=== PATIENT | female | born 1950 | race African-American/Black ===

== ENCOUNTER 2019-03-03 09:50 | Observation (INO) | payer BC ==
--- NOTE | 2019-03-03 10:10 | PDOC ---
History of Present Illness - General Stated Complaint: SYNCOPY Time Seen by Provider: 03/03/19 10:10 History Source: Patient, EMS Exam Limitations: No Limitations - History of Present Illness Initial Comments: 03/03/19 10:18 HPI 68 YOF with h/o HTN, DM2, hypothyroidism, memory loss, seizure?, b12 deficiency presenting with syncope. she was at PT today, s/p unwitnessed fall and found by staff members face down on the floor. pt is amnesic to the event, denies any current symptoms and is confused. Denies fever, chills, chest pain, SOB, palpitation, dizziness, weakness, N, V, D , abdominal pain, bladder and bowel problems, focal weakness/paresthesias, leg swelling/pain, rash. Allergies: None Past Medical History/PSH: HTN, DM2, hypothyroidism Social history: No tobacco, ETOH or drug use. Meds: as documented in EMR PMD: Dr Moises Teixeira Review of systems Constitutional: no fevers or chills. No general weakness HEENT: no headache or dizziness. No congestion. No visual/hearing disturbances. CVS: no chest pain, +SYNCOPE Resp: no sob. No cough. Gastrointestinal: no abdominal pain, nausea, vomiting, diarrhea. Genitourinary: no urinary sx, hematuria. MUSCULOSKELETAL: No joint pain and swelling. No neck or back pain. SKIN: no redness or skin changes, no discharge, no rash. +wound, swelling. Hematologic: no easy bruising/bleeding. Endocrine: +polyuria, +polydipsia. NEUROLOGIC: No headache, dizziness, +Syncope, +amnesia. No focal weakness, numbness or tingling. Psych: no anxiety or depression Allergic/Immunologic: no allergies All other systems reviewed and negative, or as documented in HPI. Physical exam General: Well appearing, awake and alert, NAD. HEENT: +left lateral brow swelling, mildly tender to palp. no crepitus. PERRL, EOMI, clear conjunctiva, anicteric, moist mucus membranes, clear oropharynx, no oral lesions.. +anterior tongue abrasion, inner lower lip ecchymosis and tenderness, no active bleeding. Neck: neck supple, FROM, no midline C spine tenderness Resp: CTAB, normal and even respirations, no respiratory distress CVS: RRR, no murmurs, 2+ peripheral pulses throughout, no peripheral edema Abdomen: soft, NTND, no rebound or guarding. Back: nontender, normal inspection and ROM MSK: no edema, LERNER x4, ROM intact. No clubbing or cyanosis. normal bulk and tone. Extremities: no calf tenderness Neuro: alert, oriented appropriately; no focal neurologic deficits, speech slow , clear. no pronator drift, 5/5 prox and distal strength against resistance. SILT in all extrem. Psych: Calm and cooperative Skin: warm and well perfused, cap refill <2 sec, normal color 03/03/19 11:14 03/03/19 11:32 03/03/19 12:00 Past History - Past Medical History Allergies/Adverse Reactions: Allergies Allergy/AdvReac Type Severity Reaction Status Date / Time No Known Allergies Allergy Unverified 06/29/15 08:59 Home Medications: Ambulatory Orders Amlodipine Besylate [Norvasc -] 10 mg PO DAILY 03/03/19 Benazepril HCl 40 mg PO DAILY 03/03/19 Levothyroxine [Synthroid -] 75 mcg DAILY 03/03/19 metFORMIN HCL [Metformin HCl] 500 mg BID 03/03/19 *Physical Exam - Vital Signs Last Vital Signs Temp Pulse Resp BP Pulse Ox 98 F 78 20 128/78 98 03/03/19 10:15 03/03/19 10:15 03/03/19 10:15 03/03/19 10:15 03/03/19 10:34 Heart Score/ECG Review #1 ECG reviewed & interpreted by me at: 11:35 General ECG Interpretation: Sinus Rhythm, Normal Rate, Normal Intervals Compared to previous ECG there are: Previous ECG unavail 03/03/19 12:01 nonspecific TWF in III only ED Treatment Course - LABORATORY CBC & Chemistry Diagram: 03/03/19 10:33 03/03/19 10:33 - ADDITIONAL ORDERS Additional order review: Laboratory Results 03/03/19 03/03/19 10:33 10:09 Sodium 137 Potassium 3.8 Chloride 104 Carbon Dioxide 26 Anion Gap 7 L BUN 14.7 Creatinine 1.0 Est GFR (CKD-EPI)AfAm 67.99 Est GFR (CKD-EPI)NonAf 58.66 POC Glucometer 97 Random Glucose 101 Calcium 9.0 Magnesium 2.2 Total Bilirubin 0.3 AST 47 H ALT 31 Alkaline Phosphatase 87 Troponin I < 0.02 Total Protein 7.2 Albumin 3.7 03/03/19 03/03/19 10:33 10:09 RBC 3.95 MCV 90.9 MCHC 33.2 RDW 14.0 MPV 7.6 Neutrophils % 48.8 Lymphocytes % 40.3 H Monocytes % 7.8 Eosinophils % 2.8 Basophils % 0.3 POC Glucometer 97 - RADIOLOGY Radiology Studies Ordered: Category Date Time Status CERVICAL SPINE CT W/O CONTR [CT] Stat CT Scan 03/03/19 10:[address] W/O CONTRAST [CT] Stat CT Scan 03/03/19 10:[address] WITHOUT CONTRAST [CT] Stat CT Scan 03/03/19 10:12 Completed CHEST PA & LAT [RAD] Stat Radiology 03/03/19 10:10 Taken Medical Decision Making - Medical Decision Making 03/03/19 10:22 Vital Signs Temp Pulse Resp BP Pulse Ox 98 F 78 20 128/78 98 03/03/19 10:15 03/03/19 10:15 03/03/19 10:15 03/03/19 10:15 03/03/19 10:34 DDx. syncope: considered interval abnormalities including short QTC or long QT syndrome, WPW, conduction abnormality, B[place], ACS, PE, electrolyte disturbances, metabolic derangement. seizure, SENIOR NETWORK SECURITY ENGINEER lesion, CVA, ICH. VS reviewed wnl. labs and lytes wnl. no anemia. trop neg, EKG-sinus rhythm, no ST - t wave derangements no priors. CT head neg for ICH/bleed, injuries. CT cspine with degenerative changes, no fx/sublux CT facial unremarkable, hematoma noted, soft tissue swelling on left brow, otherwise no fx. admit for syncope, tele observation for echo, seizure vs syncope pt made aware of impression and plan, agreeable also spoke with PMD Dr Teixeira from office, h/o seizure, memory loss and B12 deficiency requiring monthly injections. s/o to Dr Andrade service. cards cs with Dr Lopez, neuro with Dr Pedroza, consults placed for inpatient eval. 03/03/19 12:05 03/03/19 12:05 Discharge - Discharge Information Problems reviewed: Yes Clinical Impression/Diagnosis: Syncope Qualifiers: Syncope type: unspecified Qualified Code(s): R55 - Syncope and collapse Condition: Stable - Admission Yes - Follow up/Referral Referrals: Moises Teixeira MD [Primary Care Provider] - - Patient Discharge Instructions - Post Discharge Activity
[2019-03-03 10:49] LABS: BASO % 0.3 % (0-2.0); EOS % 2.8 % (0-4.5); HEMATOCRIT 35.9 % (32.4-45.2); HEMOGLOBIN 11.9 GM/dL (10.7-15.3); LYMPH % 40.3 % (8-40); MCH 30.2 pg (25.7-33.7); MCHC 33.2 g/dl (32.0-36.0); MEAN CELL VOLUME 90.9 fl (80-96); MEAN PLT VOLUME 7.6 fl (7.5-11.1); MONO % 7.8 % (3.8-10.2); NEUT % 48.8 % (42.8-82.8); PLATELET COUNT 220 K/MM3 (134-434); RBC 3.95 M/mm3 (3.60-5.2); WHITE BLOOD COUNT 4.5 K/mm3 (4.0-10.0)
[2019-03-03 11:24] LABS: ALBUMIN 3.7 g/dl (3.4-5.0); ALK PHOS 87 U/L (45-117); ANION GAP 7 MMOL/L (8-16); BILIRUBIN,TOTAL 0.3 mg/dL (0.2-1); BLOOD UREA NITROGEN 14.7 mg/dL (7-18); CHLORIDE 104 mmol/L (98-107); CO2 26 mmol/L (21-32); GLUCOSE,RANDOM 101 mg/dL (74-106); MAGNESIUM 2.2 mg/dL (1.8-2.4); POTASSIUM 3.8 mmol/L (3.5-5.1); SGOT/AST 47 U/L (15-37); SGPT/ALT 31 U/L (13-61); SODIUM 137 mmol/L (136-145); TOT PROT 7.2 g/dl (6.4-8.2)
[2019-03-03 12:08] LABS: INR 1.01 (0.83-1.09); PROTHROMBIN TIME (PATIENT) 11.9 SEC (9.7-13.0)
[2019-03-03 12:09] LABS: URINE APPEARANCE CLEAR; URINE BILIRUBIN NEGATIVE (NEGATIVE); URINE COLOR YELLOW; URINE GLUCOSE (UA) NEGATIVE (NEGATIVE); URINE KETONE NEGATIVE (NEGATIVE); URINE LEUK ESTERASE NEGATIVE (NEGATIVE); URINE NITRITE NEGATIVE (NEGATIVE); URINE PROTEIN TRACE (NEGATIVE); URINE UROBILINOGEN 0.2 mg/dL (0.2-1.0)
[2019-03-03 12:11] LABS: ACTIVATED PTT 26.6 SECONDS (25.2-36.5)
--- NOTE | 2019-03-03 12:21 | CON.CARD ---
Consult Consult Specialty:: Cardiology Referred by:: Sanna Andrade MD, Moises Teixeira MD Reason for Consultation:: Syncope - History of Present Illness Chief Complaint: Syncope History of Present Illness: 68 YOF with h/o HTN, DM2, hypothyroidism, memory loss, seizure?, b12 deficiency presented post syncope. She was at PT today, s/p unwitnessed fall and found by staff members face down on the floor. pt is amnesic to the event, denies any current symptoms and denies prodromal symptoms of chest pain, near or true syncope, palpitations, chest pain, orthopnea, PND, LE edema or change in exercise capacity. Allergies: None Past Medical History/PSH: HTN, DM2, hypothyroidism Social history: No tobacco, ETOH or drug use. Meds: as documented in EMR PMD: Dr Moises Teixeira - History Source History Provided By: Patient Limitations to Obtaining History: No Limitations - Alcohol/Substance Use Hx Alcohol Use: No - Smoking History Smoking history: Never smoked Have you smoked in the past 12 months: No Home Medications - Allergies Allergies/Adverse Reactions: Allergies Allergy/AdvReac Type Severity Reaction Status Date / Time No Known Allergies Allergy Unverified 06/29/15 08:59 - Home Medications Home Medications: Ambulatory Orders Amlodipine Besylate [Norvasc -] 10 mg PO DAILY 03/03/19 Benazepril HCl 40 mg PO DAILY 03/03/19 Levothyroxine [Synthroid -] 75 mcg DAILY 03/03/19 metFORMIN HCL [Metformin HCl] 500 mg BID 03/03/19 Review of Systems - Review of Systems Neurological: reports: Syncope Vital Signs: Vital Signs Temperature 98 F 03/03/19 10:15 Pulse Rate 78 03/03/19 10:15 Respiratory Rate 20 03/03/19 10:15 Blood Pressure 128/78 03/03/19 10:15 O2 Sat by Pulse Oximetry (%) 98 03/03/19 10:34 Constitutional: Yes: No Distress, Calm Neck: Yes: Supple Respiratory: Yes: Regular, CTA Bilaterally Gastrointestinal: Yes: Normal Bowel Sounds, Soft Cardiovascular: Yes: Regular Rate and Rhythm JVD: No Carotid Bruit: No Heart Sounds: Yes: S1, S2 Edema: No - Other Data Labs, Other Data: CBC, BMP 03/03/19 10:33 03/03/19 10:33 INR, PTT INR 1.01 (0.83-1.09) 03/03/19 11:31 Troponin, BNP 03/03/19 10:33 Troponin I < 0.02 Troponin, BNP 03/03/19 10:33 Troponin I < 0.02 NSR @ [address]-T changes, Qc 428 msec Imaging - Results Chest X-ray: Report Reviewed (NAD) Cat Scan: Report Reviewed (HCT: No acute changes) Problem List - Problems (1) Hypertension Code(s): I10 - ESSENTIAL (PRIMARY) HYPERTENSION Qualifiers: Hypertension type: essential hypertension Qualified Code(s): I10 - Essential (primary) hypertension (2) Type 2 diabetes mellitus Code(s): E11.9 - TYPE 2 DIABETES MELLITUS WITHOUT COMPLICATIONS Qualifiers: Diabetes mellitus skilled nursing insulin use: without skilled nursing use (3) Hypothyroidism Code(s): E03.9 - HYPOTHYROIDISM, UNSPECIFIED Qualifiers: Hypothyroidism type: unspecified Qualified Code(s): E03.9 - Hypothyroidism , unspecified (4) Syncope Code(s): R55 - SYNCOPE AND COLLAPSE Qualifiers: Syncope type: unspecified Qualified Code(s): R55 - Syncope and collapse Assessment/Plan 1. Syncope, etiology to be determined 2. Hypertension 3. Hypothyroidism 4. Type 2 DM 5. h/o seizure d/o, memory loss and B12 deficiency requiring monthly injections P:1. Check orthostatic VS, echo to assess ventricular and valve fxn, check TSH, Ha1c, lipid panel 2. Telemetry monitoring to evaluate for arrhythmia, may benefit from extended arrhythmia monitoring as outpatient if inpatient telemetry unrevealing 3. Continue Norvasc 10 qd, Benazepril 40 qd 4. Thank you for consultative opportunity
--- NOTE | 2019-03-03 12:29 | HP ---
Admitting History and Physical - Primary Care Physician PCP: Moises Teixeira - Admission Chief Complaint: syncope History of Present Illness: ER HISTORY - History of Present Illness Initial Comments: 03/03/19 10:18 HPI 68 YOF with h/o HTN, DM2, hypothyroidism, memory loss, seizure?, b12 deficiency presenting with syncope. she was at PT today, s/p unwitnessed fall and found by staff members face down on the floor. pt is amnesic to the event, denies any current symptoms and is confused. Denies fever, chills, chest pain, SOB, palpitation, dizziness, weakness, N, V, D , abdominal pain, bladder and bowel problems, focal weakness/paresthesias, leg swelling/pain, rash. Allergies: None Past Medical History/PSH: HTN, DM2, hypothyroidism Social history: No tobacco, ETOH or drug use. 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-- did not see Neurology) Cardiovascular: Yes: HTN Heme/Onc: Yes: B12 Deficiency Endocrine: Yes: Diabetes Mellitus - Smoking History Smoking history: Never smoked Have you smoked in the past 12 months: No - Alcohol/Substance Use Hx Alcohol Use: No Home Medications - Allergies Allergies/Adverse Reactions: Allergies Allergy/AdvReac Type Severity Reaction Status Date / Time No Known Allergies Allergy Verified 06/01/13 00:47 - Home Medications Home Medications: Ambulatory Orders Amlodipine Besylate/Benazepril [Lotrel 5-20 mg Capsule] 1 each PO DAILY Azithromycin [Zithromax Z-ILSA (5 DAYS) -] 250 mg PO ASDIR 06/01/13 Levothyroxine [Synthroid -] 25 mcg PO DAILY 06/01/13 Loratadine [Claritin] 10 mg PO DAILY #7 ml 06/01/13 Levothyroxine [Synthroid -] 75 mcg DAILY 03/03/19 metFORMIN HCL [Metformin HCl] 500 mg BID 03/03/19 Amlodipine Besylate [Norvasc -] 5 mg PO DAILY #30 tablet 03/04/19 Benazepril HCl 20 mg PO DAILY #30 tablet 03/04/19 levETIRAcetam [Keppra -] 750 mg PO BID #60 tablet 03/04/19 Review of Systems - Review of Systems Constitutional: denies: Chills, Fever, Weakness Cardiovascular: denies: Chest Pain, Edema, Palpitations, Shortness of Breath Physical Examination Vital Signs: Vital Signs Temperature 98 F 03/03/19 10:15 Pulse Rate 78 03/03/19 10:15 Respiratory Rate 20 03/03/19 10:15 Blood Pressure 128/78 03/03/19 10:15 O2 Sat by Pulse Oximetry (%) 98 03/03/19 10:34 Constitutional: Yes: No Distress, Calm Cardiovascular: Yes: Regular Rate and Rhythm Respiratory: Yes: CTA Bilaterally Gastrointestinal: Yes: Normal Bowel Sounds, Soft. No: Tenderness Edema: No Neurological: Yes: WNL ...Motor Strength: WNL Labs: CBC, BMP 03/03/19 10:33 03/03/19 10:33 Imaging - Results Chest X-ray: Image Reviewed (clear) Cat Scan: Report Reviewed EKG: Image Reviewed (NSR) Problem List - Problems (1) Seizure disorder Code(s): G40.909 - EPILEPSY, UNSP, NOT INTRACTABLE, WITHOUT STATUS EPILEPTICUS (2) Hypertension Code(s): I10 - ESSENTIAL (PRIMARY) HYPERTENSION Qualifiers: Hypertension type: essential hypertension Qualified Code(s): I10 - Essential (primary) hypertension (3) Hypothyroidism Code(s): E03.9 - HYPOTHYROIDISM, UNSPECIFIED Qualifiers: Hypothyroidism type: unspecified Qualified Code(s): E03.9 - Hypothyroidism , unspecified (4) Syncope Code(s): R55 - SYNCOPE AND COLLAPSE Qualifiers: Syncope type: unspecified Qualified Code(s): R55 - Syncope and collapse (5) Type 2 diabetes mellitus Code(s): E11.9 - TYPE 2 DIABETES MELLITUS WITHOUT COMPLICATIONS Qualifiers: Diabetes mellitus detention insulin use: without exterminator helper termite use Assessment/Plan PLAN Check Orthostasis start iv fluids Ordered carotid doppler and echocardiogram Telemetry monitoring Neurology eval Cardiology eval check Thyroid function tests
[2019-03-03] MEDS ORDERED: SODIUM CHLORIDE 0.45% 1,000 ML IV SCH (12:30)
--- NOTE | 2019-03-03 15:58 | ECHO ---
Name: ARNOLD MOHAN Exam:Adult Echocardiogram Study Date: 03/03/2019 03:24 PM Age: 68 yrs Reason For Study: SYNCOPE Height: 68 in Weight: 170 lb BSA: 1.9 m2 MMode/2D Measurements & Calculations IVSd: 1.1 cm Ao root diam: 3.1 cm LVIDd: 3.6 cm LA dimension: 3.5 cm LVIDs: 2.9 cm ACS: 1.6 cm LVPWd: 1.3 cm EDV(Teich): 56.0 ml LVOT diam: 2.0 cm ESV(Teich): 32.5 ml Doppler Measurements & Calculations MV E max humberto: 67.6 cm/sec Ao V2 max: 132.5 cm/sec MV A max humberto: 80.0 cm/sec Ao max P.0 mmHg MV E/A: 0.85 Ao V2 mean: 93.8 cm/sec MV dec time: 0.19 sec Ao mean P.1 mmHg Ao V2 VTI: 29.4 cm JOSAFAT(I,D): 1.8 cm2 JOSAFAT(V,D): 1.9 cm2 LV V1 max P.7 mmHg MR max humberto: 283.7 cm/sec LV V1 mean P.7 mmHg MR max P.2 mmHg LV V1 max: 81.4 cm/sec LV V1 mean: 63.2 cm/sec LV V1 VTI: 17.6 cm SV(LVOT): 53.9 ml TR max humberto: 218.5 cm/sec TR max P.2 mmHg RVSP(TR): 29.2 mmHg Med Peak E' Humberto: 7.7 cm/sec RAP systole: 10.0 mmHg Med E/e': 8.8 Lat Peak E' Humberto: 14.7 cm/sec Lat E/e': 4.6 Procedure A two-dimensional transthoracic echocardiogram with color flow and Doppler was performed. Left Ventricle The left ventricular size, thickness and function are normal. The left ventricle is not well visualiz ed. The left ventricular ejection fraction is normal. Regional wall motion abnormalities cannot be excluded d ue to limited visualization. Right Ventricle The right ventricle is not well visualized. Atria Normal left and right atrial size and function. Mitral Valve There is mild mitral valve thickening. There is no mitral valve stenosis. There is mild mitral regurg itation. Tricuspid Valve The tricuspid valve is normal in structure and function. There is no tricuspid stenosis. There is mil d tricuspid regurgitation. Right ventricular systolic pressure is elevated at 30-40mmHg. Aortic Valve The aortic valve is not well visualized. No hemodynamically significant valvular aortic stenosis. No aortic regurgitation is present. Pulmonic Valve The pulmonic valve is not well visualized. Great Vessels The aortic root is normal size. Pericardium/Pleura There is no pericardial effusion. Interpretation Summary The left ventricular size, thickness and function are normal The left ventricular ejection fraction is normal. There is mild mitral regurgitation. There is mild tricuspid regurgitation. Right ventricular systolic pressure is elevated at 30-40mmHg. The left ventricle is not well visualized. Regional wall motion abnormalities cannot be excluded due to limited visualization. MD Tanvir Nielsen 03/03/2019 03:58 PM
[2019-03-03] MEDS: INSULIN SLIDING SCALE (NOVOLOG) 1 VIAL SQ SCH (17:09)
[2019-03-03] MEDS ORDERED: metFORMIN HCL 500 MG TABLET (FP) ONE (17:42)
[2019-03-03] MEDS: metFORMIN HCL 500 MG TABLET (FP) PO SCH (18:08)
[2019-03-03 21:23] VITALS: BMI 26.4
[2019-03-04] MEDS: metFORMIN HCL 500 MG TABLET (FP) PO SCH (06:43)
[2019-03-04] MEDS: INSULIN SLIDING SCALE (NOVOLOG) 1 VIAL SQ SCH (06:43)
[2019-03-04] MEDS ORDERED: LEVOTHYROXINE NA 75 MCG TABLET (FP) PO SCH (07:00)
[2019-03-04 07:42] LABS: BASO % 0.3 % (0-2.0); EOS % 2.6 % (0-4.5); HEMOGLOBIN 12.3 GM/dL (10.7-15.3); LYMPH % 39.9 % (8-40); MCH 30.1 pg (25.7-33.7); MCHC 33.2 g/dl (32.0-36.0); MEAN CELL VOLUME 90.9 fl (80-96); MEAN PLT VOLUME 7.4 fl (7.5-11.1); MONO % 7.4 % (3.8-10.2); NEUT % 49.8 % (42.8-82.8); PLATELET COUNT 221 K/MM3 (134-434); RBC 4.07 M/mm3 (3.60-5.2); RDW 14.2 % (11.6-15.6); WHITE BLOOD COUNT 4.1 K/mm3 (4.0-10.0)
[2019-03-04 08:09] LABS: CHOLESTEROL 181 mg/dL (50-200); HDL CHOLESTEROL 66 mg/dL (40-60); LDL CHOLESTEROL (ONLY SJRH) 100 mg/dL (5-100); TRIGLYCERIDES 53 mg/dL (0-150)
[2019-03-04 08:10] LABS: ALBUMIN 3.3 g/dl (3.4-5.0); BILIRUBIN,TOTAL 0.6 mg/dL (0.2-1); BLOOD UREA NITROGEN 9.1 mg/dL (7-18); CALCIUM 8.8 mg/dL (8.5-10.1); CREATININE 0.7 mg/dL (0.55-1.3); POTASSIUM 3.8 mmol/L (3.5-5.1); TOT PROT 6.5 g/dl (6.4-8.2)
[2019-03-04 08:41] VITALS: BP 132/82; PULSE 75; TEMP 98
--- NOTE | 2019-03-04 09:35 | PN ---
Progress Note, Physician History of Present Illness: Denies recurrent near or true syncope, orthostatic hypotension noted. - Current Medication List Current Medications: Active Medications Amlodipine Besylate (Norvasc -) 10 mg PO DAILY [facility] Sodium Chloride (1/2 Normal Saline) 1,000 mls @ 75 mls/hr IV ASDIR [facility] Last Admin: 03/03/19 12:40 Dose: 75 mls/hr Insulin Aspart (Novolog Vial Sliding Scale -) 1 vial SQ BIDAC [facility]; Protocol Last Admin: 03/04/19 06:43 Dose: Not Given Levothyroxine Sodium (Synthroid -) 75 mcg PO AM [facility] Last Admin: 03/04/19 06:43 Dose: 75 mcg Lisinopril (Prinivil) 40 mg PO DAILY [facility] Metformin HCl (Glucophage -) 500 mg PO BIDI [facility] Last Admin: 03/04/19 06:43 Dose: 500 mg - Objective Vital Signs: Vital Signs Temperature 98 F 03/04/19 08:40 Pulse Rate 75 03/04/19 08:40 Respiratory Rate 16 03/04/19 08:40 Blood Pressure 132/82 03/04/19 08:40 O2 Sat by Pulse Oximetry (%) 98 03/03/19 21:00 Constitutional: Yes: No Distress, Calm, Thin Neck: Yes: Supple Cardiovascular: Yes: Regular Rate and Rhythm Respiratory: Yes: Regular, CTA Bilaterally Gastrointestinal: Yes: Normal Bowel Sounds, Soft Edema: No Labs: CBC, BMP 03/04/19 06:35 03/04/19 06:35 INR, PTT INR 1.01 (0.83-1.09) 03/03/19 11:31 - ....Imaging EKG: Report Reviewed (Tele: No sig pauses or bradyarrhythmia) Problem List - Problems (1) Hypertension Code(s): I10 - ESSENTIAL (PRIMARY) HYPERTENSION Qualifiers: Hypertension type: essential hypertension Qualified Code(s): I10 - Essential (primary) hypertension (2) Type 2 diabetes mellitus Code(s): E11.9 - TYPE 2 DIABETES MELLITUS WITHOUT COMPLICATIONS Qualifiers: Diabetes mellitus meterman insulin use: without meterman use (3) Hypothyroidism Code(s): E03.9 - HYPOTHYROIDISM, UNSPECIFIED Qualifiers: Hypothyroidism type: unspecified Qualified Code(s): E03.9 - Hypothyroidism , unspecified (4) Syncope Code(s): R55 - SYNCOPE AND COLLAPSE Qualifiers: Syncope type: unspecified Qualified Code(s): R55 - Syncope and collapse (5) Orthostasis Code(s): I95.1 - ORTHOSTATIC HYPOTENSION Assessment/Plan 03/03/2019 Echo: Normal LV and RV size and fxn, mild MR, TR RVSP 30-40 mmHg 03/03/2019 Carotid US: No sig stenosis 1. Syncope with orthostatic hypotension 2. Hypertension 3. Hypothyroidism 4. Type 2 DM 5. h/o seizure d/o, memory loss and B12 deficiency requiring monthly injections P:1. Decrease Lotrel 5/20 qd and monitor orthostasis 2. Telemetry monitoring to evaluate for arrhythmia, may benefit from extended arrhythmia monitoring as outpatient if inpatient telemetry unrevealing 3. D/c planning with f/u in office for further evaluation
[2019-03-04] MEDS ORDERED: LISINOPRIL 20 MG TABLET (FP) PO SCH ×2 (10:00)
[2019-03-04] MEDS ORDERED: amLODIPine BESYLATE 5 MG TABLET (FP) PO SCH (10:00)
[2019-03-04] MEDS ORDERED: amLODIPine BESYLATE 10 MG TABLET (FP) PO SCH (10:00)
--- NOTE | 2019-03-04 10:03 | CON.NEURO ---
Consult - History of Present Illness History of Present Illness: 68 YOF with h/o HTN, DM2, hypothyroidism, memory loss, seizure?, b12 deficiency presenting with syncope. she was at PT on 03/03/19 s/p unwitnessed fall and found by staff members face down on the floor. pt is amnesic to the event, denies any current symptoms and is confused. Daughter states she had seizure like episode this DEC , had MRI as outpt --told be NL , was not started on AED. CT HD (-) CT C SPINE -DJD, no sig pathology Dopplers (-) - Past Medical History Cardio/Vascular: Yes: HTN ...: No Endocrine: Yes: Diabetes Mellitus - Alcohol/Substance Use Hx Alcohol Use: No - Smoking History Smoking history: Never smoked Have you smoked in the past 12 months: No Home Medications - Allergies Allergies/Adverse Reactions: Allergies Allergy/AdvReac Type Severity Reaction Status Date / Time No Known Allergies Allergy Unverified 06/29/15 08:59 - Home Medications Home Medications: Ambulatory Orders Levothyroxine [Synthroid -] 75 mcg DAILY 03/03/19 metFORMIN HCL [Metformin HCl] 500 mg BID 03/03/19 Amlodipine Besylate [Norvasc -] 5 mg PO DAILY #30 tablet 03/04/19 Benazepril HCl 20 mg PO DAILY #30 tablet 03/04/19 levETIRAcetam [Keppra -] 750 mg PO BID #60 tablet 03/04/19 Physical Exam-Neuro Vital Signs: Vital Signs Temperature 98 F 03/04/19 08:40 Pulse Rate 75 03/04/19 08:40 Respiratory Rate 16 03/04/19 08:40 Blood Pressure 132/82 03/04/19 08:40 O2 Sat by Pulse Oximetry (%) 98 03/03/19 21:00 Labs: CBC, BMP 03/04/19 06:35 03/04/19 06:35 INR, PTT INR 1.01 (0.83-1.09) 03/03/19 11:31 - Neuro Exam Level Of Consciousness: Yes: Alert (awake, alert, nonfocal back to baseline ) Assessment/Plan 68 YOF with h/o HTN, DM2, hypothyroidism, memory loss, seizure?, b12 deficiency presenting with syncope. she was at PT on 03/03/19 s/p unwitnessed fall and found by staff members face down on the floor. pt is amnesic to the event, denies any current symptoms and is confused. CT HD (-) CT C SPINE -DJD, no sig pathology Dopplers (-) AP : Suspect underlying seizure DO , with another breakthrough seizure start Keppra 750 BID family to bring in MRI form past she insists on going away this weekend to [place] will FU thereafter to get [address] MONREAL
--- NOTE | 2019-03-04 10:33 | DS ---
Physical Examination Vital Signs: Vital Signs Temperature 98 F 03/04/19 08:40 Pulse Rate 75 03/04/19 08:40 Respiratory Rate 16 03/04/19 08:40 Blood Pressure 132/82 03/04/19 08:40 O2 Sat by Pulse Oximetry (%) 98 03/03/19 21:00 Constitutional: Yes: No Distress, Calm Cardiovascular: Yes: Regular Rate and Rhythm Respiratory: Yes: CTA Bilaterally Gastrointestinal: Yes: Normal Bowel Sounds, Soft. No: Tenderness Edema: No Neurological: Yes: WNL, Alert ...Motor Strength: WNL Psychiatric: Yes: WNL Labs: CBC, BMP 03/04/19 06:35 03/04/19 06:35 Discharge Summary Problems reviewed: Yes Reason For Visit: SYNCOPE Current Active Problems Hypertension (Acute) Hypothyroidism (Acute) Orthostasis (Acute) Syncope (Acute) Type 2 diabetes mellitus (Acute) Hospital Course: ADMISSION HISTORY-- History of Present Illness Initial Comments: 03/03/19 10:18 HPI 68 YOF with h/o HTN, DM2, hypothyroidism, memory loss, seizure?, b12 deficiency presenting with syncope. she was at PT today, s/p unwitnessed fall and found by staff members face down on the floor. pt is amnesic to the event, denies any current symptoms and is confused. Denies fever, chills, chest pain, SOB, palpitation, dizziness, weakness, N, V, D , abdominal pain, bladder and bowel problems, focal weakness/paresthesias, leg swelling/pain, rash. Allergies: None Past Medical History/PSH: HTN, DM2, hypothyroidism Social history: No tobacco, ETOH or drug use. Meds: as documented in EMR PMD: Dr Moises Teixeira Pt examined has h/o seizure last year -- but not on meds-- she had work up done with PMD-- MRI brain was done No headaches, dizziness , chest pain Carotid doppler- negative Echo normal EF Ct scans all negative labs unremarkable Orthostasis positive-->BP meds decreased Started on Keppra PO 750mg BID Evaluated by Cardiology and Neurology Pt is stable for dc home-- she will follow up with above consultants Had MRI brain done this year Condition: Stable - Instructions Diet, Activity, Other Instructions: Patient was admitted in [facility] from 03/03/19 to 03/04/19- please excuse her from work till 03/06/19 Referrals: Reji Pedroza DO [Staff Physician] - Aleksandar Gagnon MD [Staff Physician] - Moises Teixeira MD [Primary Care Provider] - Disposition: HOME - Home Medications Comprehensive Discharge Medication List: Ambulatory Orders Amlodipine Besylate [Norvasc -] 10 mg PO DAILY 03/03/19 Benazepril HCl 40 mg PO DAILY 03/03/19 Levothyroxine [Synthroid -] 75 mcg DAILY 03/03/19 metFORMIN HCL [Metformin HCl] 500 mg BID 03/03/19
[2019-03-04] MEDS ORDERED: levETIRAcetam 250 MG TABLET (FP) PO SCH (11:00)
--- NOTE | 2019-03-04 12:00 | EKG ---
Test Reason : Blood Pressure : / mmHG Vent. Rate : 065 BPM Atrial Rate : 065 BPM P-R Int : 190 ms QRS Dur : 084 ms QT Int : 412 ms P-R-T Axes : 066 -02 041 degrees QTc Int : 428 ms NORMAL SINUS RHYTHM NORMAL ECG NO PREVIOUS ECGS AVAILABLE Confirmed by VONNIE RIDER MD ([id number]) on 03/04/2019 11:59:30 AM Referred By: Confirmed By:VONNIE RIDER MD
== END 2019-03-04 12:30 | disposition home or self-care (01) ==
LOC: JER 09:50 → JERBED 12:00 → MERGE 12:00 → J4W 21:01 → J5S 03-04 10:01 → J4W 03-04 10:06
PROVIDERS: ADMIT Internal Medicine; ATTEND Internal Medicine
PROC: 3E0337Z Introduction of Electrolytic and Water Balance Substance into Peripheral Vein, Percutaneous Approach (ICD-10-PCS; principal; 2019-03-03)
DX: R55 Syncope and collapse (principal); I10 Essential (primary) hypertension; E11.9 Type 2 diabetes mellitus without complications; E03.9 Hypothyroidism, unspecified; D51.9 Vitamin B12 deficiency anemia, unspecified; R41.3 Other amnesia; G40.909 Epilepsy, unspecified, not intractable, without status epilepticus; I95.1 Orthostatic hypotension; Z79.84 Long term (current) use of oral hypoglycemic drugs; W18.30XA Fall on same level, unspecified, initial encounter; Y93.89 Activity, other specified; Y92.89 Other specified places as the place of occurrence of the external cause
CPT/HCPCS: 36415; 70450-TC; 70486-TC; 71046-TC-FY; 72125-TC; 80053; 80061; 81003; 82550; 82553; 82607; 82962; 83036; 83721; 83735; 84439; 84443; 84484; 85025; 85610; 85730; 87086; 93005; 93010; 93306-TC; 93880-TC; 99285-25; G0378

== ENCOUNTER 2024-05-16 14:53 | Emergency (ER) | payer BC ==
[2024-05-16 15:02] VITALS: BMI 27.3
[2024-05-16 16:24] LABS: BASO % 0.4 % (0-2.0); EOS % 0.2 % (0-4.5); HEMATOCRIT 37.9 % (32.4-45.2); HEMOGLOBIN 12.3 GM/dL (10.7-15.3); LYMPH % 10.2 % (8-40); MCH 28.9 pg (25.7-33.7); MCHC 32.4 g/dl (32.0-36.0); MEAN CELL VOLUME 89.2 fl (80-96); MEAN PLT VOLUME 7.1 fl (7.5-11.1); NEUT % 84.2 % (42.8-82.8); PLATELET COUNT 220 10^3/uL (134-434); RBC 4.24 M/mm3 (3.60-5.2); RDW 14.3 % (11.6-15.6); WHITE BLOOD COUNT 7.2 K/mm3 (4.0-10.0)
[2024-05-16] MEDS ORDERED: ACETAMINOPHEN INJECTION 100 ML ONE (16:24)
[2024-05-16] MEDS: ACETAMINOPHEN 1000 MG/100 ML BAG IVPB ONE (16:28)
[2024-05-16] MEDS ORDERED: levETIRAcetam 500 MG/5 ML INJECTION VIAL IVPB ONE (16:29)
[2024-05-16 16:41] LABS: POTASSIUM 4.2 mmol/L (3.5-5.1)
[2024-05-16 16:43] LABS: CALCIUM 9.6 mg/dL (8.5-10.1)
[2024-05-16 16:44] LABS: ALBUMIN 3.8 g/dl (3.4-5.0); BLOOD UREA NITROGEN 13.8 mg/dL (7-18); MAGNESIUM 2.2 mg/dL (1.8-2.4)
[2024-05-16] MEDS: levETIRAcetam 500 MG/5 ML INJECTION VIAL IVPB ONE (16:45)
[2024-05-16 16:47] LABS: CREATININE 0.9 mg/dL (0.55-1.3)
[2024-05-16 16:48] LABS: BILIRUBIN,TOTAL 0.4 mg/dL (0.2-1); TOT PROT 7.5 g/dl (6.4-8.2)
[2024-05-16 18:03] LABS: PH,URINE 6.5 (5.0-8.0); URINE APPEARANCE CLEAR; URINE BILIRUBIN NEGATIVE (NEGATIVE); URINE COLOR YELLOW; URINE GLUCOSE (UA) NEGATIVE (NEGATIVE); URINE KETONE NEGATIVE (NEGATIVE); URINE LEUK ESTERASE NEGATIVE (NEGATIVE); URINE NITRITE NEGATIVE (NEGATIVE); URINE PROTEIN TRACE (NEGATIVE); URINE UROBILINOGEN 0.2 mg/dL (0.2-1.0)
[2024-05-16 18:39] VITALS: BP 113/75; PULSE 75; RESP 20; TEMP 98.6
== END 2024-05-16 18:42 | disposition home or self-care (01) ==
LOC: JER 14:53
PROC: 3E033NZ Introduction of Analgesics, Hypnotics, Sedatives into Peripheral Vein, Percutaneous Approach (ICD-10-PCS; principal; 2024-05-16)
PROC: 3E033GC Introduction of Other Therapeutic Substance into Peripheral Vein, Percutaneous Approach (ICD-10-PCS; 2024-05-16)
DX: G40.909 Epilepsy, unspecified, not intractable, without status epilepticus (principal); Z20.822 Contact with and (suspected) exposure to COVID-19; W01.198A Fall on same level from slipping, tripping and stumbling with subsequent striking against other object, initial encounter
CPT/HCPCS: 0241U-QW; 36415; 70450-TC; 71045-TC-FY; 80053; 80177; 81003; 82962; 83735; 84484; 85025; 87086; 93005; 93010; 99284-25; J0131